=== PATIENT | male | born 1980 | race African-American/Black ===

== ENCOUNTER 2020-04-18 10:04 | Day surgery (SDC) | payer BC ==
[2020-04-17 15:15] VITALS: BMI 26.5
[2020-04-18] MEDS ORDERED: PROPOFOL 200 MG/20 ML VIAL ONE (10:24)
[2020-04-18] MEDS ORDERED: Lidocaine 1% PF 5 ML VIAL ONE (10:24)
[2020-04-18] MEDS ORDERED: Iothalamate Meglumine 60% 50 ML VIAL FS ONE (10:53)
[2020-04-18] MEDS ORDERED: Levofloxacin 500 mg/D5W 100 ml Premix Bag ONE (11:15)
[2020-04-18] MEDS ORDERED: Triamcinolone 40 MG/ML VIAL ONE (11:43)
[2020-04-18] MEDS ORDERED: Fentanyl 100 MCG/2 ML VIAL ONE (12:37)
[2020-04-18] MEDS ORDERED: Ketorolac Tromethamine 30 MG/ML VIAL ONE (13:28)
[2020-04-18] MEDS ORDERED: Oxybutynin 5 MG TAB ONE (13:29)
--- NOTE | 2020-04-18 13:33 | OP ---
DATE OF PROCEDURE: 04/18/2020 PREOPERATIVE DIAGNOSIS: Bulbar stricture. POSTOPERATIVE DIAGNOSIS: Bulbar stricture. PROCEDURES PERFORMED: Retrograde urethrogram, direct vision internal urethrotomy, cystourethroscopy with injection of steroid into stricture. ANESTHESIA: General. COMPLICATIONS: None. ESTIMATED BLOOD LOSS: Minimal. SPECIMEN: None. DESCRIPTION OF PROCEDURE: After informed consent, the patient was taken to the operating room, transferred to the table on his own power. Anesthesia was established. A time-out was performed showing correct patient, site, and procedure. Preoperative antibiotics were administered. He was positioned with a bump on the left side and his right knee outward allowing retrograde urethrogram. This was performed with a 60 mL catheter tip syringe. The urethra on retrograde is normal down to the bulbar urethra with a tight stricture. Given the location and its proximity to the prostatic urethra, I am unable to determine accurately the length of the stricture on retrograde urethrogram. He was then prepped and draped in the lithotomy position. The DVIU scope was inserted, noting a normal course and caliber of the urethra down to the bulbar urethra, where a tight stricture was noted. This was incised at 12, 3, and 9 o'clock, allowing easy passage of the scope. However, there was a second stricture beyond this, that was also incised at 12, 3, and 9 o'clock. Total strictured areas about 2 cm. The remainder of the bulbar urethra into the membranous urethra was normal. Prostate was normal without significant obstruction. The bladder was entered and systematically examined noting no mucosal abnormalities. He does have moderate trabeculation. The scope was then backed into the urethra and 80 mg of Kenalog were injected in all incision sites. Distributed throughout the incision sites. He did have 1 bleeding vessel, which was point cauterized with the Bugbee. The scope was then withdrawn, and an 18-[place] Bills catheter was placed easily with 10 mL instilled in the balloon and clear urine draining. He was then awoken from anesthesia, transferred back to his hospital bed and taken to PACU in stable condition, where he will discharge home upon recovery. Job ID: [id number]
--- NOTE | 2020-04-18 13:40 | RAD ---
EXAM: XR Urethrogram Retrograde DATE: 04/18/2020 12:00 AM INDICATION: History of urethral stricture COMPARISON: None. FINDIN submitted fluoroscopic images from a retrograde urethrogram performed by Dr. Orozco wa s provided. The images demonstrate retrograde opacification of the urethra. With full distention of the urethra, there is a region of moderate to high-grade stricturing involving the bulbous urethra wi th small amount of retrograde opacification of the prostatic and membranous urethra. There is some retrograde contrast flowing into the bladder on the final submitted image. IMPRESSION:Moderate to high-grade stricture involving the bulbous urethra.
== END 2020-04-18 15:05 | disposition home or self-care (01) ==
LOC: SDC 10:04
PROVIDERS: ATTEND Urology
PROC: 3E0K83Z Introduction of Anti-inflammatory into Genitourinary Tract, Via Natural or Artificial Opening Endoscopic (ICD-10-PCS; principal; 2020-04-18)
PROC: 0TND8ZZ Release Urethra, Via Natural or Artificial Opening Endoscopic (ICD-10-PCS; principal; 2020-04-18)
DX: N35.912 Unspecified bulbous urethral stricture, male (principal)
CPT/HCPCS: 51610; 74450; J1885; J1956; J2704; J3301